=== PATIENT | female | born 1955 | race Caucasian/White ===

== ENCOUNTER → 2022-12-09 | Outpatient (CLI) | payer SELFPAY, OTHER ==
--- NOTE | 2022-12-09 10:36 | RAD_ITS ---
INDICATION: SOB EXAMINATION/TECHNIQUE: X-RAY - XR Chest 2 Views COMPARISON: None. Findings: Frontal and lateral views of the chest. LUNG PARENCHYMA: No acute focal airspace disease or mass lesion. PLEURA: No pleural effusion. No pneumothorax. HEART/GREAT VESSELS: Cardiomediastinal silhouette is unremarkable. BONES: Osseous structures are unremarkable for age. RAD/Chest PA and Lateral IMPRESSION: Chest with no acute disease. Electronically Signed: Buddy Sanchez MD at 6:48 EDT ,
== END | disposition home or self-care (01) ==
PROVIDERS: PCP Family Medicine; Referring Provider Internal Medicine Pulmonary Disease; Visit Provider Internal Medicine Pulmonary Disease
DX: R06.02 Shortness of breath (principal)
CPT/HCPCS: 71046

== ENCOUNTER → 2023-03-03 | Outpatient (CLI) | payer SELFPAY, OTHER ==
--- NOTE | 2023-03-03 07:47 | ECHOD_ITS ---
Version 3 Reason For Study: SHORTNESS OF BREATH Procedure This was a 2D Doppler, Color Flow transthoracic echocardiogram. Exam performed in department. Left Ventricle Normal LV size. Left ventricular systolic function is normal. Stage 1 diastolic dysfunction. No regional wall motion abnormalities noted. Right Ventricle Normal RV size. Normal systolic function. Atria Normal left atrium. Normal right atrium. Mitral Valve Normal mitral valve. Tricuspid Valve Normal tricuspid valve. Unable to estimate RV systolic pressure due to insufficient tricuspid regurgitant envelope. Aortic Valve Normal aortic valve. Pulmonic Valve Normal pulmonic valve. Great Vessels Normal aortic root. The pulmonary artery is normal size. Normal inferior vena cava. Pericardium/Pleural No pericardial effusion. MMode/2D Measurements & Calculations LVIDd: 4.4 cm IVSd: 0.94 cm LVOT diam: 2.0 cm LVIDs: 2.9 cm LVPWd: 0.72 cm LVOT area: 3.0 cm2 RVDd: 3.0 cm FS: 34.4 % Ao root diam: 3.2 cm LAV(MOD-bp): 32.8 ml LVAd ap4: 27.9 cm2 LAV(MOD-bp) Indexed: 16.2 ml/m2 LVLd ap4: 7.8 cm LAV(MOD-sp2): 37.1 ml EDV(MOD-sp4): 82.4 ml LAV(MOD-sp4): 26.9 ml EDV(sp4-el): 85.0 ml LVAs ap4: 15.2 cm2 LVLs ap4: 6.7 cm ESV(MOD-sp4): 28.2 ml ESV(sp4-el): 29.3 ml EF(MOD-sp4): 65.8 % EF(sp4-el): 65.6 % LVAd ap2: 27.3 cm2 SV(MOD-sp4): 54.2 ml SV(MOD-sp2): 46.6 ml LVLd ap2: 7.7 cm EDV(MOD-sp2): 79.4 ml EDV(sp2-el): 82.0 ml LVAs ap2: 15.6 cm2 LVLs ap2: 6.1 cm ESV(MOD-sp2): 32.8 ml ESV(sp2-el): 33.7 ml EF(MOD-sp2): 58.7 % SV(sp4-el): 55.8 ml LA dimension(2D): 3.1 cm LA A4 area: 13.0 cm2 RA A4 area: 9.8 cm2 Time Measurements MV dec time: 0.32 sec Doppler Measurements & Calculations MV E max jamaal: 71.3 cm/sec Lat Peak E' Jamaal: 8.5 cm/sec Med Peak E' Jamaal: 6.2 cm/sec MV A max jamaal: 94.6 cm/sec E/E' lat: 8.4 E/E' med: 11.6 MV E/A: 0.75 Ao V2 max: 133.6 cm/sec LV V1 max: 109.6 cm/sec MV dec slope: 225.4 cm/sec2 Ao max P.1 mmHg LV V1 max P.8 mmHg Ao V2 mean: 93.3 cm/sec LV V1 mean P.5 mmHg Ao mean P.0 mmHg LV V1 mean: 74.4 cm/sec Ao V2 VTI: 28.4 cm LV V1 VTI: 22.4 cm AV (velocity ratio): 0.79 RADHA(I,D): 2.4 cm2 RADHA(V,D): 2.5 cm2 SV(LVOT): 67.4 ml PA V2 max: 123.9 cm/sec PA max PG (full): 3.2 mmHg ECHO/Echo Complete Interpretation Summary Normal LV size. Left ventricular systolic function is normal. Stage 1 diastolic dysfunction. Unable to estimate RV systolic pressure due to insufficient tricuspid regurgita nt envelope. Structurally normal valves. Ordering Physician: Yahir Mendez V Referring Physician: Yhair Mendez V Performed By: Sheela Barros RDCS
== END | disposition home or self-care (01) ==
LOC: CVS 07:40
PROVIDERS: PCP Family Medicine; Referring Provider Internal Medicine Pulmonary Disease; Visit Provider Internal Medicine Pulmonary Disease
DX: R06.02 Shortness of breath (principal)
CPT/HCPCS: 93306